=== PATIENT | female | born 1990 ===

== ENCOUNTER → 2019-10-19 | Outpatient (CLI) | payer OTHER ==
[~2019-10-19] MED LIST: PSEU30
== END ==
LOC: LAB EV 17:21 → LAB SHORT 17:21
DX: R05 Cough (principal); Z20.828 Contact with and (suspected) exposure to other viral communicable diseases
CPT/HCPCS: U0003

== ENCOUNTER → 2022-01-31 | Outpatient (CLI) | payer OTHER | END | disposition home or self-care (01) | LOC: LAB SHORT 14:52 | DX: D22.62 Melanocytic nevi of left upper limb, including shoulder (principal) | CPT/HCPCS: 88305 ==

== ENCOUNTER → 2023-02-17 | Outpatient (CLI) | payer OTHER ==
[2023-02-17 19:31] LABS: BASOPHILS ABSOLUTE AUTO 0.06 K/mm3 (0.00-0.23); BASOPHILS PERCENT AUTO 1 % (0-2); EOSINOPHILS ABSOLUTE AUTO 0.03 K/mm3 (0.00-0.68); EOSINOPHILS PERCENT AUTO 0 % (0-6); Hematocrit 43.3 % (33.0-51.0); Hemoglobin 14.5 g/dL (11.5-16.0); IMMATURE GRAN ABSOLUTE AUTO 0.02 K/mm3 (0.00-0.10); IMMATURE GRAN PERCENT AUTO 0 % (0-1); LYMPHOCYTES ABSOLUTE AUTO 1.59 K/mm3 (0.84-5.20); LYMPHOCYTES PERCENT AUTO 23 % (21-46); MONOCYTES ABSOLUTE AUTO 0.34 K/mm3 (0.16-1.47); MONOCYTES PERCENT AUTO 5 % (4-13); Mean Corpuscular HGB 28.4 pg (26.0-34.0); Mean Corpuscular HGB Conc 33.5 g/dL (31.5-36.5); Mean Corpuscular Volume 85 fL (80-100); Mean Platelet Volume 12.3 fL (9.1-12.4); NEUTROPHILS ABSOLUTE AUTO 4.76 K/mm3 (1.96-9.15); NEUTROPHILS PERCENT AUTO 70 % (41-73); Platelet Count 228 K/mm3 (150-400); RDW Coefficient Variation 12.3 % (11.7-14.2); RDW Standard Deviation 37.6 fL (35.1-46.3); Red Blood Cell Count 5.11 M/mm3 (3.80-5.20)
[2023-02-17 20:35] LABS: Percent Saturation 66.2 % (15.0-50.0); Thyroid Stimulating Hormone 0.857 uIU/mL (0.360-4.800)
[2023-02-17 20:36] LABS: Albumin, Blood 3.9 g/dL (3.4-5.0); Bilirubin, Total 0.2 mg/dL (0.1-1.0); Bun/Creatinine Ratio 20.8 (12.0-20.0); Calcium, Blood 8.7 mg/dL (8.5-10.1); Creatinine, Blood 0.58 mg/dL (0.40-1.00); Globulin, Blood 4.1 g/dL (2.2-4.0); Potassium, Blood 3.5 mmol/L (3.5-5.5)
== END | disposition home or self-care (01) ==
LOC: LAB 18:16 → LAB SHORT 18:16
PROVIDERS: Family Medicine
DX: D50.9 Iron deficiency anemia, unspecified (principal)
CPT/HCPCS: 80053; 82607; 82728; 82746; 83540; 83550; 84443; 85025

== ENCOUNTER 2024-03-05 06:54 | Day surgery (SDC) | payer OTHER ==
[~2024-03-05 06:54] MED LIST changes: +PROM12.5S PR; +Sod Ferric Gluc Complx/Sucrose 125 MG in NS 100 ML IV SCH
[2024-03-05] MEDS ORDERED: FERSU300 PO (14:31)
[2024-03-05 14:32] VITALS: BP 115/79
== END 2024-03-05 15:35 | disposition home or self-care (01) ==
LOC: ATC 06:54
DX: D50.9 Iron deficiency anemia, unspecified (principal); J40 Bronchitis, not specified as acute or chronic; Z90.721 Acquired absence of ovaries, unilateral
CPT/HCPCS: 96365; J2916

== ENCOUNTER 2024-03-12 04:43 | Day surgery (SDC) | payer OTHER ==
[~2024-03-12 04:43] MED LIST changes: +FERSU300 PO
[2024-03-12 14:11] VITALS: BP 139/92
== END 2024-03-12 15:24 | disposition home or self-care (01) ==
LOC: ATC 04:43
DX: D50.9 Iron deficiency anemia, unspecified (principal); Z88.8 Allergy status to other drugs, medicaments and biological substances
CPT/HCPCS: 96365; J2916

== ENCOUNTER 2024-03-27 05:33 | Day surgery (SDC) | payer OTHER ==
[~2024-03-27 05:33] MED LIST changes: -Sod Ferric Gluc Complx/Sucrose 125 MG in NS 100 ML IV SCH
[2024-03-27] MEDS ORDERED: Sod Ferric Gluc Complx/Sucrose 125 MG in NS 100 ML IV SCH (06:00)
[2024-03-27 15:15] VITALS: BP 126/93
== END 2024-03-27 16:30 | disposition home or self-care (01) ==
LOC: ATC 05:33
DX: D50.9 Iron deficiency anemia, unspecified (principal)
CPT/HCPCS: 96365; J2916

== ENCOUNTER 2024-04-10 00:04 | Day surgery (SDC) | payer OTHER ==
[2024-04-10] MEDS ORDERED: Sod Ferric Gluc Complx/Sucrose 125 MG in NS 100 ML IV SCH (01:00)
[2024-04-10 14:10] VITALS: BP 128/81
== END 2024-04-10 15:15 | disposition home or self-care (01) ==
LOC: ATC 00:04
DX: D50.9 Iron deficiency anemia, unspecified (principal); Z88.8 Allergy status to other drugs, medicaments and biological substances
CPT/HCPCS: 96365; J2916

== ENCOUNTER 2024-04-17 01:47 | Day surgery (SDC) | payer OTHER ==
[~2024-04-17 01:47] MED LIST changes: +Sod Ferric Gluc Complx/Sucrose 125 MG in NS 100 ML IV SCH
[2024-04-17 15:08] VITALS: BP 130/75
== END 2024-04-17 16:10 | disposition home or self-care (01) ==
LOC: ATC 01:47
DX: D50.9 Iron deficiency anemia, unspecified (principal); Z88.8 Allergy status to other drugs, medicaments and biological substances
CPT/HCPCS: 96365; J2916

== ENCOUNTER 2024-04-22 01:35 | Day surgery (SDC) | payer OTHER ==
[2024-04-22 13:52] VITALS: BP 128/78
== END 2024-04-22 15:04 | disposition home or self-care (01) ==
LOC: ATC 01:35
DX: D50.9 Iron deficiency anemia, unspecified (principal); L70.9 Acne, unspecified
CPT/HCPCS: 96365; J2916

== ENCOUNTER 2024-04-29 02:15 | Day surgery (SDC) | payer OTHER ==
[2024-04-29 14:24] VITALS: BP 113/79
== END 2024-04-29 15:21 | disposition home or self-care (01) ==
LOC: ATC 02:15
DX: D50.9 Iron deficiency anemia, unspecified (principal); L70.9 Acne, unspecified
CPT/HCPCS: 96365; J2916

== ENCOUNTER 2024-05-04 04:46 | Day surgery (SDC) | payer OTHER ==
[2024-05-04 11:26] VITALS: BP 117/79
== END 2024-05-04 12:20 | disposition home or self-care (01) ==
LOC: ATC 04:46
DX: D50.9 Iron deficiency anemia, unspecified (principal); Z88.8 Allergy status to other drugs, medicaments and biological substances
CPT/HCPCS: 96365; J2916

== ENCOUNTER → 2024-05-13 | Outpatient (CLI) | payer OTHER ==
[~2024-05-13] MED LIST changes: -Sod Ferric Gluc Complx/Sucrose 125 MG in NS 100 ML IV SCH
[2024-05-13 17:44] LABS: BASOPHILS ABSOLUTE AUTO 0.02 K/mm3 (0.00-0.23); BASOPHILS PERCENT AUTO 0 % (0-2); EOSINOPHILS ABSOLUTE AUTO 0.08 K/mm3 (0.00-0.68); EOSINOPHILS PERCENT AUTO 1 % (0-6); Hematocrit 41.8 % (33.0-51.0); IMMATURE GRAN ABSOLUTE AUTO 0.01 K/mm3 (0.00-0.10); IMMATURE GRAN PERCENT AUTO 0 % (0-1); LYMPHOCYTES ABSOLUTE AUTO 1.96 K/mm3 (0.84-5.20); LYMPHOCYTES PERCENT AUTO 24 % (21-46); MONOCYTES ABSOLUTE AUTO 0.49 K/mm3 (0.16-1.47); MONOCYTES PERCENT AUTO 6 % (4-13); Mean Corpuscular HGB 27.9 pg (26.0-34.0); Mean Corpuscular HGB Conc 33.5 g/dL (31.5-36.5); Mean Corpuscular Volume 83 fL (80-100); Mean Platelet Volume 11.7 fL (9.1-12.4); NEUTROPHILS ABSOLUTE AUTO 5.54 K/mm3 (1.96-9.15); NEUTROPHILS PERCENT AUTO 69 % (41-73); Platelet Count 216 K/mm3 (150-400); RDW Standard Deviation 45.5 fL (35.1-46.3); Red Blood Cell Count 5.01 M/mm3 (3.80-5.20)
[2024-05-13 20:05] LABS: Ferritin, Serum 236 ng/mL (8-252); Iron Serum 63 ug/dL (50-170); Percent Saturation 26.4 % (15.0-50.0); Total Iron Binding Capacity 239 ug/dL (250-450)
[2024-05-13 20:10] LABS: Alanine Aminotransfer (ALT/SGP 47 U/L (12-78); Albumin/Globulin Ratio 1.1 (0.8-1.8); Alk Phos 79 U/L (50-136); Anion Gap 8 mmol/L (3-11); Aspartate Aminotrans (AST/SGOT 17 U/L (12-37); Bilirubin, Direct <0.1 mg/dL (0.0-0.3); Bilirubin, Indirect Unable to Calculate mg/dL (0.1-0.7); Bilirubin, Total 0.2 mg/dL (0.1-1.0); Blood Urea Nitrogen 17 mg/dL (8-24); Bun/Creatinine Ratio 27.2 (12.0-20.0); CO2, Blood 26 mmol/L (21-32); Calcium, Blood 9.1 mg/dL (8.5-10.1); Chloride, Blood 104 mmol/L (98-108); Creatinine, Blood 0.63 mg/dL (0.40-1.00); Globulin, Blood 3.8 g/dL (2.2-4.0); Glomerular Filtration Rate 119 (60-); Glucose, Blood 83 mg/dL (70-99); Potassium, Blood 3.8 mmol/L (3.5-5.5); Sodium, Blood 134 mmol/L (136-145); Total Protein, Blood 7.8 g/dL (6.4-8.2)
== END ==
LOC: LAB 17:09 → LAB SHORT 17:09
PROVIDERS: Family Medicine
DX: D50.9 Iron deficiency anemia, unspecified (principal); E03.9 Hypothyroidism, unspecified
CPT/HCPCS: 80053; 82248; 82728; 83540; 83550; 84443; 85025